=== PATIENT | female | born 1955 | race Caucasian/White ===

== ENCOUNTER → 2021-01-19 09:56 | Outpatient (CLI) | payer MEDICARE, MEDICAID, SELFPAY ==
--- NOTE | ~2021-01-19 | MR_ITS ---
EXAMINATION: MR TMJS DATE: 01/19/2021 11:06 INDICATION: TECHNIQUE: Magnetic resonance imaging (MRI) of the temporomandibular joints was performed without int ravenous contrast. Sequences included closed-mouth sagittal T2-weighted FSE and PD-weighted FSE and c oronal T1-weighted FSE and open-mouth sagittal T2-weighted FSE and PD-weighted FSE and coronal T1-ulices ghted SE. COMPARISON: None. FINDINGS: The right temporomandibular joint demonstrates normal morphology of the mandibular condyle and tempor omandibular fossa. The disc is normal in morphology and normally located in both the open and closed mouth positions. The left temporomandibular joint demonstrates normal morphology of the mandibular condyle and temporo mandibular fossa. The disc is anteriorly displaced in the closed mouth position with thickened help desk analyst ior band. There is no recapture of the disc in the open-mouth position with the disc compress anterio r to the deeper condyle which articulates directly with the articular eminence. IMPRESSION: 1. Normal right temporomandibular joint.. 2. 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 Reviewed, dictated and finalized at location A. IMPRESSION: 1. Normal right temporomandibular joint.. 2. 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
== END ==
PROVIDERS: PCP Internal Medicine; Visit Provider Internal Medicine
DX: M26.609 Unspecified temporomandibular joint disorder, unspecified side (principal)
CPT/HCPCS: 70336